=== PATIENT | female | born 1970 | race Native Hawaiian/Other Pacific Islander ===

== ENCOUNTER 2022-09-08 07:35 | Outpatient (CLI) | payer BC, SELFPAY | END 2022-09-08 07:36 | disposition home or self-care (01) | LOC: NFLDREF 09-09 02:04 | PROVIDERS: PCP Internal Medicine; Referring Provider Internal Medicine; Visit Provider Internal Medicine | DX: Z00.00 Encounter for general adult medical examination without abnormal findings (principal); E66.9 Obesity, unspecified; R73.03 Prediabetes; K76.0 Fatty (change of) liver, not elsewhere classified; E78.5 Hyperlipidemia, unspecified | CPT/HCPCS: 80061; 82947; 84450; 84460 ==

== ENCOUNTER 2022-09-13 15:30 | Outpatient (CLI) | payer BC, SELFPAY ==
--- NOTE | 2022-09-13 15:40 | CRLHL7_ITS ---
For Patients: As a result of the Century Cures Act, medical imaging exams and procedure reports are released immediately into your electronic medical record. You may view this report before your referring provider. If you have questions, please contact your health care provider. BILATERAL SCREENING MAMMOGRAM WITH COMPUTER-AIDED DETECTION AND TOMOSYNTHESIS TECHNIQUE: CC and MLO views were obtained. These mammographic images have been obtained using full-field digital technique. These mammographic images were interpreted with the benefit of computer-aided detection. Breast Tomosynthesis was used in this interpretation. COMPARISON FILM: 05/06/21, 07/19/19, 10/30/18 FINDINGS: The breasts are almost entirely fatty IMPRESSION: There is no radiographic evidence for malignancy. ASSESSMENT: BI-RADS Category 1: Negative RECOMMENDATION: Routine screening mammogram in 1 year. A lay language report of this examination will be provided to the patient. Josh Majano M.D. Diagnostic Radiologist [email or web address] Transcribed: 2:12 p.m. DW/Dictated by: Josh Majano MD @ 09/14/2022 12:28:00 PM (Electronically Signed)
== END 2022-09-13 15:31 | disposition home or self-care (01) ==
LOC: MAMMO 15:31
PROVIDERS: PCP Internal Medicine; Visit Provider Internal Medicine
DX: Z12.31 Encounter for screening mammogram for malignant neoplasm of breast (principal)
CPT/HCPCS: 77063; 77067; T1013

== ENCOUNTER 2023-04-22 09:31 | Emergency (ER) | payer BC, SELFPAY ==
[2023-04-22 09:35] VITALS: BP 127/75; PULSE 66; RESP 20; TEMP 36.5; O2SAT 97; BMI 33.2
--- NOTE | 2023-04-22 09:45 | CRLHL7_ITS ---
For Patients: As a result of the Cures Act, medical imaging exams and procedure reports are released immediately into your electronic medical record. You may view this report before your referring provider. If you have questions, please contact your health care provider. Indication: Pain. Technique: Right ankle 3 views. Comparison: None. Findings: Bones: Acute mildly distracted fracture in the lateral malleolus. No other osseous abnormality. Joint spaces: Mild widening of the ankle joint laterally and anteriorly suggesting the possibility of ligamentous injury. Soft tissues: Lateral swelling. Dictated by Frank Dhaliwal MD @ 04/22/2023 10:18:19 AM (Electronically Signed)
--- NOTE | 2023-04-22 09:45 | ED.GENADULT ---
HPI - General Adult General Time Seen by Provider: 09:45 Date Seen: 04/22/23 Chief complaint: Extremity Pain/Injury, Lower Stated complaint: R leg pain Time Seen by Provider: 04/22/23 09:33 History of Present Illness HPI narrative: Very pleasant 52-year-old female accompanied to the ER today by her and accompanied by her son (who translates Azeri to Hebrew). 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 She injured her right ankle yesterday evening. She missed a step walking down steps and rolled her ankle inwards. She has now developed swelling, bruising, and pain on the lateral side of the foot just distal and anterior to the lateral malleolus and also around the lateral malleolus of the ankle. She is not having any pain on the medial aspect of the foot. No pain more proximally in the proximal tibia, proximal fibula, calf, or Achilles. No numbness or tingling in her foot. She is able to wiggle her toes but has limited plantar and dorsiflexion of the ankle by pain. No other injuries in the fall. Related Data Home Medications Medication Instructions Recorded Confirmed cactus 2 tab PO DAILY 09/12/22 multivitamin (Multiple Vitamins 1 tab PO QAM 09/12/22 09/12/22 tablet) omega-3 fatty acids 1,000 mg 2,000 mg PO QDAY 09/12/22 09/12/22 capsule zinc gluconate 30 mg tablet 30 mg PO QDAY 09/12/22 09/12/22 Previous Rx's Medication Instructions Recorded hydrocodone 5 mg-acetaminophen 325 1 tab PO Q4-6H PRN pain #14 tabs 04/22/23 mg tablet Allergies Allergy/AdvReac Type Severity Reaction Status Date / Time No Known Allergies Allergy Unknown Unknown Verified 09/12/22 12:41 [facility] Surgical History (Updated 09/12/22 @ 12:49 by Asha Schulte MD) Status post abdominal hysterectomy ?Z90.710 - Acquired absence of both cervix and uterus (ICD-10) History of tubal ligation ?Z98.51 - Tubal ligation status (ICD-10) History of tonsillectomy (2017) ?Z90.89 - Acquired absence of other organs (ICD-10) Social History Smoking Status: Never smoker Do you use any of these nicotine containing products: None Second hand tobacco smoke exposure: No How often do you have a drink containing alcohol: never How often do you have six or more drinks on one occasion: Never AUDIT-C Alcohol total score: 0 Non-prescribed substance use: denies use Little interest or pleasure in doing things: not at all Feeling down, depressed, or hopeless: not at all service: No Exam Narrative: Exam Narrative: Constitutional: Appears well-developed and well-nourished. Alert. Conversant. Non toxic. HENT: Head: Atraumatic. Nose: Nose normal. Mouth/Throat: Oral mucosa is clear and moist. no trismus. Pharynx normal. Tonsils symmetric. No tonsillar enlargement, erythema, or exudate. Eyes: Conjunctivae normal. EOM normal. Pupils equal, round, and reactive to light. No scleral icterus. Neck: Normal range of motion. Neck supple. No tracheal deviation present. Cardiovascular: Normal rate, regular rhythm. Symmetric DP and PT artery pulses . Normal brisk distal capillary refill Pulmonary/Chest: Effort normal. No stridor. No respiratory distress. Musculoskeletal: RUE: Normal range of motion. No tenderness. No deformity LUE: Normal range of motion. No tenderness. No deformity RLE: Normal range of motion in her hip and knee. Range of motion the ankle is limited by pain to probably 30? of flexion extension. No tenderness over the knee, proximal fibula, proximal tibia. Gastrocnemius and calf nontender. Achilles nontender. Ankle: There is bruising, ecchymosis, swelling involving the lateral malleolus on the lateral aspect of the midfoot. Tender over the lateral malleolus and lateral midfoot. No tenderness over the 5th metatarsal. Dorsum of the foot, medial foot, arch, and medial malleolus are nontender. Forefoot and toes nontender.. LLE: Normal range of motion. No edema. No tenderness. No deformity Neurological: Alert and oriented to person, place, and time. Normal strength. CN II-VII intact. No sensory deficit. GCS eye subscore is 4. GCS verbal subscore is 5. GCS motor subscore is 6. Normal coordination . Intact distal toe wiggling, flexion and extension, and intact distal sensory function. Skin: Skin is warm and dry. No rash noted. No pallor. Normal capillary refill. Psychiatric: Normal mood. Normal affect. Very polite Const: Vital Signs, click to edit/add: Vital Signs - 24 hr 04/22/23 09:35 Temperature 97.7 F Pulse Rate [Pulse Oximeter] 66 Respiratory Rate 20 Blood Pressure [Ri ght Upper Arm] 127/75 Pulse Oximetry 97 Oxygen Delivery Me thod Room Air Course Vital Signs Vital signs: Initial Vital Signs Temperature 97.7 F 04/22/23 09:35 Temperature Source Temporal Artery Scan 04/22/23 09:35 Pulse Rate 66 04/22/23 09:35 Pulse Rhythm Regular 04/22/23 09:35 Respiratory Rate 20 04/22/23 09:35 Blood Pressure 127/75 04/22/23 09:35 Blood Pressure Mean 92 04/22/23 09:35 Blood Pressure Position Supine 04/22/23 09:35 Pulse Oximetry 97 04/22/23 09:35 Oxygen Delivery Method Room Air 04/22/23 09:35 Vital Signs Temperature 97.7 F 04/22/23 09:35 Pulse Rate 66 04/22/23 09:35 Respiratory Rate 20 04/22/23 09:35 Blood Pressure 127/75 04/22/23 09:35 Pulse Oximetry 97 04/22/23 09:35 Oxygen Delivery Method Room Air 04/22/23 09:35 Temperature 97.7 F 04/22/23 09:35 Pulse Rate 66 04/22/23 09:35 Respiratory Rate 20 04/22/23 09:35 Blood Pressure 127/75 04/22/23 09:35 Pulse Oximetry 97 04/22/23 09:35 Oxygen Delivery Method Room Air 04/22/23 09:35 Medical Decision Making MDM Narrative Medical decision making narrative: This patient presents for evaluation of right lateral ankle pain. She does have evidence for a minimally distracted distal fibular fracture on x-ray. No significant widening of the ankle mortise. The patients neurovascular status is normal. Knee exam is normal. I don't think this is a Maisonneuve injury or a intraosseous ligament injury based on the location of tenderness. A head to toe trauma exam is otherwise negative; the likelihood of other serious sequelae of trauma (spine, head, chest, abdomen, other extremities, pelvis) is low. Plan is for limited weightbearing, crutches, immobilization in see a.mag philippe RICE treatment with ice 15-20 minutes every 3 hours. Stable need orthopedic clinic follow-up within 5-10 days for re-evaluation and repeat x-rays to make sure this fracture is healing. Hopefully will heal non operatively. Discussed pain control. They will use Tylenol or ibuprofen 1st, ice and immobilization. Prescription for [place] provided for breakthrough pain. They understand opiate precautions. Discussed risks associated with ankle fracture and Precautions for return reviewed and questions answered. Imaging Data R ankle XR: Attestation: I have reviewed the pertinent imaging results. Radiologist's impression: Findings: Bones: Acute mildly distracted fracture in the lateral malleolus. No other osseous abnormality. Joint spaces: Mild widening of the ankle joint laterally and anteriorly suggesting the possibility of ligamentous injury. Soft tissues: Lateral swelling. Discharge Plan Discharge Clinical Impression: Closed fracture of distal end of right fibula Patient Disposition: Home, Self-Care Condition: Stable Instructions: Ankle Fracture (DC) Additional Instructions: As we discussed, please come back to the ER immediately if you have worsening pain, swelling, numbness or pallor of your foot, or if you have any concerns. Follow-up with Orthopedics within 5-10 days for re-evaluation and repeat x-rays to make sure fracture is healing properly. Use [id number] pain medications such as Tylenol or ibuprofen if needed for pain. Use prescription hydrocodone if needed for breakthrough pain. Be careful because hydrocodone causes drowsiness, sedation. Keep your foot elevated when possible. Avoid prolonged standing on the foot because that will increase swelling and pain. You can return to full duty at work after you are cleared by orthopedics. Call the [facility] at [phone] on Monday morning to schedule a recheck appointment in 5-10 days for your broken ankle. Prescriptions: New hydrocodone-acetaminophen 5-325 mg tablet 1 tab PO Q4-6H PRN (Reason: pain) Qty: 14 0RF No Action zinc gluconate 30 mg tablet 30 mg PO QDAY multivitamin [Multiple Vitamins] Tablet 1 tab PO QAM omega-3 fatty acids 1,000 mg capsule 2,000 mg PO QDAY cactus 2 tab PO DAILY Follow Up/Referrals: Asha Schulte MD [Primary Care Provider] - Stand Alone Forms: 8aweek Info Instructions
== END 2023-04-22 11:18 | disposition home or self-care (01) ==
PROVIDERS: Emergency Provider Emergency Medicine; PCP Internal Medicine
DX: S82.831A Other fracture of upper and lower end of right fibula, initial encounter for closed fracture (principal); W10.9XXA Fall (on) (from) unspecified stairs and steps, initial encounter
CPT/HCPCS: 73610; 99283

== ENCOUNTER 2023-06-30 09:00 | Outpatient (RCR) | payer BC, SELFPAY | END 2023-08-08 14:00 | disposition home or self-care (01) | PROVIDERS: PCP Internal Medicine; Visit Provider Orthopaedic Surgery Sports Medicine | DX: S82.831A Other fracture of upper and lower end of right fibula, initial encounter for closed fracture (principal); S92.351A Displaced fracture of fifth metatarsal bone, right foot, initial encounter for closed fracture; Z51.89 Encounter for other specified aftercare | CPT/HCPCS: 97110; 97112; 97116; 97140; 97161; T1013 ==

== ENCOUNTER 2023-09-08 07:31 | Outpatient (CLI) | payer BC, SELFPAY | END 2023-09-08 07:32 | disposition home or self-care (01) | LOC: NFLDREF 09-13 12:20 | PROVIDERS: PCP Internal Medicine; Referring Provider Internal Medicine; Visit Provider Internal Medicine | DX: E78.5 Hyperlipidemia, unspecified (principal); K76.0 Fatty (change of) liver, not elsewhere classified; R73.03 Prediabetes | CPT/HCPCS: 80061; 82947; 84450; 84460 ==

== ENCOUNTER 2023-12-05 15:44 | Outpatient (CLI) | payer BC, SELFPAY ==
--- OUTSIDE RECORDS SUMMARY | 2023-12-05 15:52 | XMS_ITS | Clinical Summary ---
Author Organization [employer] [facility] Address [place], [place] [address] Care Team Providers Care Talent Acquisition Partner Name Role Phone Lia Silva MD Primary Care Provider Allergies No known active allergies Medications Medication Sig Dispensed Refills Start Date End Date Status multivitamin-folic acid 0.4 mg (MULTIPLE VITAMIN) tablet Take 1 tablet by mouth once daily. 0 12/09/2010 Active Biotin 5 mg tab Take 1 tablet by mouth once daily. 0 09/05/2018 Active Active Problems Problem Noted Date Diagnosed Date Impaired fasting glucose 06/14/2012 Adjustment disorder with mixed anxiety and depre ssed mood 07/05/2011 Mixed hyperlipidemia 06/02/2011 Other acne 08/20/2010 Immunizations Name Administration Dates Next Due AMB Influenza, IIV3 (Age >=3 years)(Flu [facility]) 03/13/2013,04/09/2011 Influenza, IIV3 (Age >=3 years) 02/24/2012,04/29 Tdap 04/29/2010 Family History Medical History Relation Name Comments Good Health Father two sisters wit h diabetes Unknown Maternal Grandfather Unknown Maternal Grandmother Diabetes Mother Alcohol/Drug Paternal Grandfather Unknown Paternal Grandmother Cancer-breast No Family History Relation Name Status Comments Father Maternal Grandfather Maternal Grandmother Mother Paternal Grandfather Paternal Grandmother Social History Tobacco Use Types Packs/Day Years Used Date Smoking Tobacco: Never Smokeless Tobacco: Never Tobacco Cessation:Counseling Given: Yes Alcohol Use Standard Drinks/Week Comments No 0 (1 standard drink = 0.6 oz pur e alcohol) Sex and Gender Information Value Date Recorded Sex Assigned at Not on file Gender Identity Not on file Sexual Orientation Not on file Obstetrics History Para Term AB IAB SAB Ectopic Multiple Livin g Live Births 2 2 2 0 0 0 0 0 0 2 2 Date Outcome GA Total Labor Labor/2nd/3rd Weight Sex Type Anes PTL Iman A1 A5 Name Clin 1991 Term F Vag Living 2000 Term M Vag Living Last Filed Vital Signs Vital Sign Reading Time Taken Comments Blood Pressure 124/85 09/05/2018 4:01 PM CDT tow er Pulse 63 09/05/2018 4:01 PM CDT Temperature 36.8 ??C (98.3 ??F) 12/17/2013 12:01 PM C DT Respiratory Rate 12 10/20/2010 4:32 PM CDT Oxygen Saturation 97% 09/05/2018 4:01 PM CDT Inhaled Oxygen Concentration - - Weight 75.8 kg (167 lb) 09/05/2018 4:01 PM CDT Height 151.9 cm (4' 11.8) 12/15/2014 4:08 PM CD T Body Mass Index 32.83 12/15/2014 4:08 PM CDT Plan of Treatment Health Maintenance Due Date Last Done Comments Depression screening for age 12+ 1983 HIV for age 15-65 10/01/1986 BMI (ht and wt on same day) for age 18+ 10/01/1989 Hepatitis C screening for age 18-79 10/01/1989 Colonoscopy through age 75 10/01/2016 Mammogram for age 45-75 10/01/2016 12/16/19 15, 12/17/2013, 12/25/2012, Additional history exists Pap test for age 21-65 12/15/2017 5, 12/06/2011, 04/29/2010, Additional history exists Lipids for age 45-75 06/04/2018 06/04/2013, 06/14/2012, 06/09/2011, Additional history exists Tetanus booster 04/29/2020 04/29/2010 Zoster (shingles) series for age 50+ (1 of 2) 10/01/2021 COVID-19 vaccine series ( - 2022- season) 2023 Influenza for age 50-64 02/25/2024 03/13/20 13, 02/24/2012, 04/09/2011, Additional history exists Tdap Completed 04/29/2010 Pneumococcal series for age 6-64 Aged Out No longer eligible based on patient's age to complete this topic Procedures Procedure Name Priority Date/Time Associated Diagnosis Comments XR MAMMO BILAT SCREEN FFDM (IA) Routine 12/15/2014 4:36 PM CDT Other screening mammogram MANAGER GRANT THIN PREP PAP SCREEN IMAGED Routine 12/15/2014 4:15 PM CDT Screening for malignant neoplasm of cervix LIPID PANEL W REFLEX MEASURED LDL Routine 06/04/2013 9:15 AM SERVICE STATION CASHIER Impaired fasting glucose Mixed hyperlipidemia from Last 3 Months or Most Recently Relevant to Health Maintenance Results * XR MAMMO BILAT SCREEN FFDM (12/15/2014 4:36 PM CDT) Anatomical Region Laterality Modality BREASTS, Breast Left, Breast Right Bilateral Mammography Impressions 12/16/2014 12:09 PM CDT ??There is no radiographic evidence for malignancy. ??Recommend annual mammograms. A lay language report of this examination will be provided to the patient. MAMMOGRAM ASSESSMENT: ??ACR 2 Benign Narrative 12/16/2014 12:09 PM CDT XR MAMMO BILAT SCREEN FFDM [G0202.0] CLINICAL HISTORY: ??This is an asymptomatic 44 y.o. patient. INDICATION FOR EXAM: Mammogram Screening. TECHNIQUE: CC & MLO views were obtained. ??This digital study was evaluated with the assistance of Computer-Aided Detection. COMPARISON FILMS: Yes 12/17/13 [facility] 12/25/12 [facility] FINDINGS: ??Mammographically, the breast tissue has scattered fibroglandular densities. ??No suspicious masses or microcalcifications. ?? Benign appearing calcifications within both breasts and Benign appearing asymmetry within left breast. Procedure Note Alex Vaca DO - 12/16/2014 XR MAMMO BILAT SCREEN FFDM [G0202.0] CLINICAL HISTORY: This is an asymptomatic 44 y.o. patient. INDICATION FOR EXAM: Mammogram Screening. TECHNIQUE: CC & MLO views were obtained. This digital study was evaluatedwith the assistance of Computer-Aided Detection. COMPARISON FILMS: Yes 12/17/13 [facility] 12/25/12 [facility] FINDINGS: Mammographically, the breast tissue has scatteredfibroglandular densities. No suspicious masses or microcalcifications.Benign appearing calcifications within both breasts and Benign appearingasymmetry within left breast. IMPRESSION: There is no radiographic evidence for malignancy. Recommendannual mammograms. A lay language report of this examination will be provided to the patient. MAMMOGRAM ASSESSMENT: ACR 2 Benign Lia Silva MD MAMMO * MANAGER GRANT THIN PREP PAP SCREEN IMAGED (12/15/2014 4:15 PM CDT) MANAGER GRANT CYTOLOGY See Anatomic Pathology case 12/20/2014 7:00 PM CDT [facility] Specimen (specimen) Non-Blood / Unknown 12/15/2014 4:15 PM CDT 12/15/2014 6:22 PM CDT Lia Silva MD PATHOLOGY/CY[facility]OL [facility] [address] [place] [address], * (ABNORMAL) LIPID PANEL W REFLEX MEASURED LDL (06/04/2013 9:15 AM SERVICE STATION CASHIER) Pathologist [facility] CHOLESTEROL,TOTAL 191 100 - 199 mg/dL 06/04/2013 9:49 AM [facility] TRIGLYCERIDES 177(H) <150 mg/dL 06/04/2013 9:49 AM [facility] HDL CHOLESTEROL 42 >40 mg/dL 3 9:49 AM [facility] NON-HDL CHOLESTEROL 149(H) <145 mg/dl 06/04/2013 9:49 AM [facility] CHOL/HDL RATIO 4.55(H) <4.50 06/04/2013 9:49 AM [facility] LDL CHOLESTEROL 114 <=130 mg/dL 06/04/2013 9:49 AM [facility] PATIENT STATUS FASTING 06/04/2013 9:49 AM [facility] Blood specimen (specimen) BLOOD SPECIMEN / Unknown Venipuncture / Unknown 06/04/2013 9:15 AM [facility]ICE STATION CASHIER 06/04/2013 9:15 AM SERVICE STATION CASHIER Lia Silva MD CHEMISTRY [facility] [address] [place] [address] from Last 3 Months or Most Recently Relevant to Health Maintenance Care Teams Talent Acquisition Partner Relationship Specialty Start Date End Date Lia Silva MD [address] [place] [address] PCP - General Family Practice 05/29/12
--- NOTE | 2023-12-05 16:00 | CRLHL7_ITS ---
For Patients: As a result of the Cures Act, medical imaging exams and procedure reports are released immediately into your electronic medical record. You may view this report before your referring provider. If you have questions, please contact your health care provider. BILATERAL SCREENING MAMMOGRAM WITH COMPUTER-AIDED DETECTION AND TOMOSYNTHESIS TECHNIQUE: CC and MLO views were obtained. These mammographic images have been obtained using full-field digital technique. These mammographic images were interpreted with the benefit of computer-aided detection. Breast Tomosynthesis was used in this interpretation. COMPARISON FILM: 09/13/22, 05/06/21, 01/16/22. FINDINGS: The breasts are almost entirely fatty IMPRESSION: There is no radiographic evidence for malignancy. ASSESSMENT: BI-RADS Category 1: Negative RECOMMENDATION: Routine screening mammogram in 1 year. A lay language report of this examination will be provided to the patient. SHAMIKA CALDERÓN M.D. Diagnostic/Nuclear Medicine Radiologist [email or web address] MARIANO:perico Transcribed: 2:31 [address]mHyacinth river/Dictated by: Shamika Calderón MD @ 12/07/2023 9:41:00 AM (Electronically Signed)
== END 2023-12-05 15:45 | disposition home or self-care (01) ==
LOC: MAMMO 15:50
PROVIDERS: PCP Internal Medicine; Visit Provider Internal Medicine
DX: Z12.31 Encounter for screening mammogram for malignant neoplasm of breast (principal)
CPT/HCPCS: 77063; 77067; T1013

== ENCOUNTER 2024-09-09 07:25 | Outpatient (CLI) | payer BC, SELFPAY | END 2024-09-09 07:26 | disposition home or self-care (01) | LOC: NFLDREF 09-10 03:15 | PROVIDERS: PCP Internal Medicine; Referring Provider Internal Medicine; Visit Provider Internal Medicine | DX: E78.5 Hyperlipidemia, unspecified (principal); R73.03 Prediabetes; K76.0 Fatty (change of) liver, not elsewhere classified | CPT/HCPCS: 80061; 82947; 84450; 84460 ==

== ENCOUNTER 2024-12-24 10:14 | Outpatient (CLI) | payer BC, SELFPAY ==
--- NOTE | 2024-12-24 10:45 | CRLHL7_ITS ---
For Patients: As a result of the Century Cures Act, medical imaging exams and procedure reports are released immediately into your electronic medical record. You may view this report before your referring provider. If you have questions, please contact your health care provider. INDICATION: Fatty liver COMPARISON: 09/14/2016 TECHNIQUE: Real time mccarthy scale imaging and color Doppler analysis was performed of the right upper quadrant. FINDINGS: Liver measures 17.7 cm. Liver echotexture is diffusely increased. There is a normal appearance of the hepatic IVC and proximal abdominal aorta. There is no evidence of ascites. The gallbladder is of normal size and there is no evidence of intraluminal stones or sludge. The gallbladder wall measures 2 mm in thickness. The common bile duct is of normal size and measures 5 mm in diameter at the level of the adair hepatis. The pancreas appears normal. There is no evidence of a stone or hydronephrosis within the right kidney. The right kidney measures 11.9 cm in length. IMPRESSION: Hepatomegaly and hepatic steatosis, not significantly changed. Dictated by Josh Majano MD @ 12/24/2024 12:07:17 PM (Electronically Signed)
== END 2024-12-24 10:15 | disposition home or self-care (01) ==
LOC: US 10:15
PROVIDERS: PCP Internal Medicine; Visit Provider Internal Medicine
DX: K76.0 Fatty (change of) liver, not elsewhere classified (principal); R16.0 Hepatomegaly, not elsewhere classified; Z13.6 Encounter for screening for cardiovascular disorders
CPT/HCPCS: 76705; 80061; 84460; T1013